=== PATIENT | female | born 1985 | race Caucasian/White ===

== ENCOUNTER 2022-03-04 11:25 | Emergency (ER) | payer MEDICAID ==
[~2022-03-04] VITALS: Ht 165.1 cm; Wt 106.6 kg
[2022-03-04] MEDS ORDERED: PRILOSEC OTC20 MG PO (14:01)
[2022-03-04] MEDS ORDERED: ONDANSETRON ODT8 MG PO (14:01)
[2022-03-04] MEDS ORDERED: REGLAN10 MG PO (21:28)
--- NOTE | 2022-03-05 17:36 | EKG ---
[facility] [address] [place] [address] Signed Normal sinus rhythm with sinus arrhythmia Normal ECG No previous ECGs available Confirmed by RUMA ALATORRE MD ([id number]) on 03/05/2022 5:36:13 PM Electronically Signed By: RUMA ALATORRE MD 03/05/22 1736 PATIENT NAME: CLEMENTE PURDY Electrocardiogram DATE OF : 81 PHYSICIAN: RUMA ALATORRE MD REPORT #: [id number] REPORT IS CONFIDENTIAL AND NOT TO BE RELEASED WITHOUT AUTHORIZATION
== END 2022-03-04 14:30 | disposition home or self-care (01) ==
LOC: ED 11:25
DX: K21.9 Gastro-esophageal reflux disease without esophagitis (principal); K52.9 Noninfective gastroenteritis and colitis, unspecified; Z88.8 Allergy status to other drugs, medicaments and biological substances; Z88.5 Allergy status to narcotic agent
CPT/HCPCS: 36415; 80053; 81001; 83690; 85025; 93005; 93010; 99284-25; A9270

== ENCOUNTER 2022-03-04 16:31 | Emergency (ER) | payer MEDICAID ==
[~2022-03-04] VITALS: Ht 165.1 cm; Wt 106.6 kg
[~2022-03-04 16:31] MED LIST: ONDANSETRON ODT8 MG PO; PRILOSEC OTC20 MG PO
--- OUTSIDE RECORDS SUMMARY | 2022-03-04 16:40 | XMS ---
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 - 2 Visits in 30 Days [facility]: Unknown Care Guidelines exist for the following facilities: [facility] ( 06/03/2019 ) [place] VISIT COUNT (12 MO.) [address] TOTAL 3 NOTE: Visits indicate total known visits. ED/UCC VISIT TRACKING (12 MO.) 03/04/2022 16:33 ANGELI [place]wood TYPE: Emergency COMPLAINT: - CANT EAT FEELS LIKE A BLOCKAGE 03/04/2022 11:27 ANGELI [place] TYPE: Emergency COMPLAINT: - CHEST PAIN, UPPER ABD PAIN, ANXIETY 12/24/2021 14:58 [facility] Lilli [place] TYPE: Emergency DIAGNOSES: - Encounter for general adult medical examination without abnormal findings - Medical Problem (Minor) - Poss Overdose - Poss Ingestion INPATIENT VISIT TRACKING (12 MO.) No inpatient visits to display in this time frame [email or web address]
[2022-03-04] MEDS ORDERED: REGLAN10 MG PO (21:28)
== END 2022-03-04 22:21 | disposition home or self-care (01) ==
LOC: ED 16:31
DX: K21.9 Gastro-esophageal reflux disease without esophagitis (principal); Z88.8 Allergy status to other drugs, medicaments and biological substances; Z88.5 Allergy status to narcotic agent; Z79.899 Other long term (current) drug therapy
CPT/HCPCS: 74176; 80053; 81001; 83690; 84703; 85025; 96374; 96375; 99284-25; J1170; J2405; J7030

== ENCOUNTER 2022-03-05 08:22 | Emergency (ER) | payer MEDICAID ==
[~2022-03-05] VITALS: Ht 165.1 cm; Wt 106.6 kg
[~2022-03-05 08:22] MED LIST changes: +REGLAN10 MG PO
--- OUTSIDE RECORDS SUMMARY | 2022-03-05 08:30 | XMS ---
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 ED/UCC VISIT TRACKING (12 MO.) 03/05/2022 08:23 ANGELI [place] TYPE: Emergency COMPLAINT: - RT ARM INJ 03/04/2022 16:33 ANGELI [place] TYPE: Emergency COMPLAINT: - CANT EAT FEELS LIKE A BLOCKAGE 03/04/2022 11:27 ANGELI [place] TYPE: Emergency COMPLAINT: - CHEST PAIN, UPPER ABD PAIN, ANXIETY 12/24/2021 14:[address] [facility] T[place]anna [place] TYPE: Emergency DIAGNOSES: - Poss Ingestion - Encounter for general adult medical examination without abnormal findings - Medical Problem (Minor) - Poss Overdose INPATIENT VISIT TRACKING (12 MO.) No inpatient visits to display in this time frame [email or web address]
== END 2022-03-05 09:07 | disposition home or self-care (01) ==
LOC: ED 08:22
DX: T80.818A Extravasation of other vesicant agent, initial encounter (principal); Z88.8 Allergy status to other drugs, medicaments and biological substances; Z88.5 Allergy status to narcotic agent; Z79.899 Other long term (current) drug therapy
CPT/HCPCS: 99283

== ENCOUNTER 2022-05-05 15:15 | Emergency (ER) | payer MEDICAID ==
[~2022-05-05] VITALS: Ht 165.1 cm; Wt 97.8 kg
--- OUTSIDE RECORDS SUMMARY | 2022-05-05 15:23 | XMS ---
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 ED/UCC VISIT TRACKING (12 MO.) 05/05/2022 15:15 ANGELI [place] TYPE: Emergency COMPLAINT: - HERNIA ISSUE 05/04/2022 09:49 [facility] [place] TYPE: Emergency DIAGNOSES: - Epigastric pain - L SIDE PAIN 05/03/2022 13:46 [facility] TYPE: Emergency DIAGNOSES: - Other chest pain - GENERAL [facility]AGNOSES: - [facility] [facility] [address] DIAGNOSES: - Abdominal Pain - Hernia - Nausea - Unspecified abdominal pain - Diarrhea, unspecified 03/06/2022 09:[facility] DIAGNOSES: - Unspecified abdominal pain - Abdominal Pain - poss issue with hernia 03/05/2022 12:05 [facility] DIAGNOSES: - poss blown out hernia seen at [facility] yesterday, worsening symptoms - Ventral hernia without obstruction or gangrene - Abdominal Pain 03/05/2022 08:23 [facility] [place] TYPE: Emergency COMPLAINT: - RT ARM INJ DIAGNOSES: - Allergy status to narcotic agent - Other specified soft tissue disorders - Allergy status to other drugs, medicaments and biological substances - Other intermediate (current) drug therapy - Extravasation of other vesicant agent, initial encounter 03/04/2022 16:33 [facility]I [place] TYPE: Emergency COMPLAINT: - CANT EAT FEELS LIKE A BLOCKAGE DIAGNOSES: - Allergy status to other drugs, medicaments and biological substances - Vomiting, unspecified - Allergy status to narcotic agent - Other intermediate (current) drug therapy - Gastro-esophageal reflux disease without esophagitis 03/04/2022 11:27 [facility]ELI [place] TYPE: Emergency COMPLAINT: - CHEST PAIN, UPPER ABD PAIN, ANXIETY DIAGNOSES: - Allergy status to narcotic agent - Upper abdominal pain, unspecified - Allergy status to other drugs, medicaments and biological substances - Noninfective gastroenteritis and colitis, unspecified - Gastro-esophageal reflux disease without esophagitis 12/24/2021 14:[address] [facility] [address] DIAGNOSES: - Medical Problem (Minor) - Poss Overdose - Poss Ingestion - Encounter for general adult medical examination without abnormal findings INPATIENT VISIT TRACKING (12 MO.) No inpatient visits to display in this time frame [id number]
[2022-05-05] MEDS ORDERED: ONDANSETRON ODT8 MG PO (18:49)
== END 2022-05-05 19:14 | disposition home or self-care (01) ==
LOC: ED 15:15
DX: K42.9 Umbilical hernia without obstruction or gangrene (principal); E86.0 Dehydration; Z88.5 Allergy status to narcotic agent; Z88.8 Allergy status to other drugs, medicaments and biological substances
CPT/HCPCS: 36415; 74177; 80048; 80053; 83690; 96375; 99284-25; C9113; J1170; J2405; J2765; J7030; Q9967